=== PATIENT | female | born 1995 | race African-American/Black ===

== ENCOUNTER 2022-01-02 21:24 | Emergency (ER) | payer MEDICAID, OTHER ==
[~2022-01-02] VITALS: Ht 175.3 cm; Wt 67.0 kg
[2022-01-02 22:31] VITALS: BP 103/63
== END 2022-01-03 03:10 | disposition left against medical advice (07) ==
LOC: ER 21:24
DX: Z53.21 Procedure and treatment not carried out due to patient leaving prior to being seen by health care provider (principal); J45.909 Unspecified asthma, uncomplicated; Z98.890 Other specified postprocedural states
CPT/HCPCS: 93005